=== PATIENT | male | born 1960 | race Caucasian/White ===

== ENCOUNTER 2017-08-02 02:42 | Emergency (ER) | payer BC ==
[~2017-08-02] VITALS: Ht 185.4 cm; Wt 105.0 kg
[2017-08-02 02:50] VITALS: BP 118/62; PULSE 60; RESP 18; TEMP 97.2; O2SAT 98
[2017-08-02] MEDS ORDERED: FAMOTIDINE 20 MG/2 ML VIAL IV STA (03:08)
[2017-08-02] MEDS ORDERED: SODIUM CHLOR 0.9% 1000 ML INJ 1,000 ML IV ONE (03:15)
[2017-08-02] MEDS ORDERED: ONDANSETRON HCL 4 MG/2 ML VIAL IV PUSH ONE (03:15)
[2017-08-02] MEDS ORDERED: LIPI40TA PO (03:16)
[2017-08-02] MEDS ORDERED: ASPI-516 CHEW (03:16)
[2017-08-02] MEDS ORDERED: LISI-515 PO (03:16)
--- NOTE | 2017-08-02 03:35 | PD ---
HPI Chief Complaint: Syncope/Near-Syncope Time Seen by Provider: 03:02 Travel History International Travel<30 days: No Contact w/Intl Traveler<30days: No Traveled to known affect area: No History of Present Illness HPI Patient is a 57-year-old male on vacation from [place]. He went out to a [employer] restaurant had not shows went to sleep woke up at 3 AM severe diarrhea cramps diaphoretic went to the toilet felt on the toilet had multiple episodes of diarrhea and the next thing he knew he was lying on the cold floor of the bathroom. He remembers thinking " the cold floor feels good" as he laid there for a little while . then got himself up back onto the toilet and saw himself in the mirror with a large knot swollen area to his right upper eyebrow area. Pt denies tonic-clonic activity denies chest pain denies shortness of breath patient did have slight amnesia of the moment from the toilet to the floor he doesn't remember falling. His was in the other room she did not hear the impact .. he called to her she came and found him sitting on the toilet ...patient in the ER is awake alert a good historian only sign of trauma is to his head denies any other injury to his body. He reports being very healthy no cardiac problems he plays basketball full-court back [place].. he runs up and down the full court for 30 minutes without ever having chest pain or shortness of breath. This fall from toilet happened just prior to arrival he has not seen another doctor for this he is not taking any medication for this PFSH Past Medical History High Cholesterol: Yes Hypertension: Yes Social History Alcohol Use: Yes Tobacco Use: No Substance Use: No Allergies-Medications (Allergen,Severity, Reaction): Coded Allergies: No Known Allergies (Unverified , 08/02/17) Reported Meds & Prescriptions Reported Meds & Active Scripts Active Pepcid (Famotidine) 20 Mg Tab 20 Mg PO BID Zofran Odt (Ondansetron Odt) 4 Mg Tab 4 Mg SL Q6HR PRN Reported Aspirin 81 Mg Chew 81 Mg CHEW DAILY Lipitor (Atorvastatin Calcium) 40 Mg Tab Unknown Dose PO HS Lisinopril 20 Mg Tab Unknown Dose PO DAILY Review of Systems Except as stated in HPI: all other systems reviewed are Neg HENT: Positive: Headaches (head trauma ) Neurologic: Positive: Dizziness, Syncope Physical Exam Narrative GENERAL: Patient is awake alert forehead has a 3 sediment around not to the upper outer eyebrow right-sided SKIN: Warm and dry. HEAD: + traumatic. 3 cm swelling above his right eyebrow. EYES: Pupils equal and round. No scleral icterus. No injection or drainage. ENT: No nasal bleeding or discharge. Mucous membranes pink and moist. NECK: Trachea midline. No JVD. CARDIOVASCULAR: Regular rate and rhythm. RESPIRATORY: No accessory muscle use. Clear to auscultation. Breath sounds equal bilaterally. GASTROINTESTINAL: Abdomen soft, non-tender, nondistended. Hepatic and splenic margins not palpable. MUSCULOSKELETAL: Extremities palpation of all his long bones bilateral did not elicit any pain. No obvious deformities. NEUROLOGICAL: Awake and alert. No obvious cranial nerve deficits. Motor grossly within normal limits. Five out of 5 muscle strength in the arms and legs. Normal speech. PSYCHIATRIC: Appropriate mood and affect; insight and judgment normal. Data Data Last Documented VS Vital Signs Date Time Temp Pulse Resp B/P (MAP) Pulse Ox O2 Delivery O2 Flow Rate FiO2 08/02/17 06:41 08/02/17 04:57 64 18 96 Room Air 08/02/17 02:50 97.2 Orders Orders Electrocardiogram (08/02/17 03:08) Complete Blood Count With Diff (08/02/17 03:08) Comprehensive Metabolic Panel (08/02/17 03:08) Ckmb (Isoenzyme) Profile (08/02/17 03:08) Troponin I (08/02/17 03:08) Lipase (08/02/17 03:08) Ct Brain W/O Iv Contrast(Rout) (08/02/17 03:08) Ct Facial Bones W/O Iv Cont (08/02/17 ) Ct Cerv Spine W/O Contrast (08/02/17 ) Ondansetron Inj (Zofran Inj) (08/02/17 03:15) Famotidine Inj (Pepcid Inj) (08/02/17 03:08) Sodium Chlor 0.9% 1000 Ml Inj (Ns 1000 M (08/02/17 03:15) CKMB (08/02/17 03:18) CKMB% (08/02/17 03:18) Urinalysis - C+S If Indicated (08/02/17 05:13) Ed Discharge Order (08/02/17 06:40) Labs Laboratory Tests Test 08/02/17 03:18 08/02/17 05:18 White Blood Count 15.4 TH/MM3 Red Blood Count 5.02 MIL/MM3 Hemoglobin 15.5 GM/DL Hematocrit 43.8 % Mean Corpuscular Volume 87.2 FL Mean Corpuscular Hemoglobin 30.8 PG Mean Corpuscular Hemoglobin Concent 35.3 % Red Cell Distribution Width 12.5 % Platelet Count 202 TH/MM3 Mean Platelet Volume 7.8 FL Neutrophils (%) (Auto) 85.8 % Lymphocytes (%) (Auto) 5.3 % Monocytes (%) (Auto) 8.5 % Eosinophils (%) (Auto) 0.2 % Basophils (%) (Auto) 0.2 % Neutrophils # (Auto) 13.2 TH/MM3 Lymphocytes # (Auto) 0.8 TH/MM3 Monocytes # (Auto) 1.3 TH/MM3 Eosinophils # (Auto) 0.0 TH/MM3 Basophils # (Auto) 0.0 TH/MM3 CBC Comment DIFF FINAL Differential Comment Blood Urea Nitrogen 16 MG/DL Creatinine 1.36 MG/DL Random Glucose 268 MG/DL Total Protein 7.3 GM/DL Albumin 4.0 GM/DL Calcium Level 8.5 MG/DL Alkaline Phosphatase 100 U/L Aspartate Amino Transf (AST/SGOT) 25 U/L Alanine Aminotransferase (ALT/SGPT) 42 U/L Total Bilirubin 0.6 MG/DL Sodium Level 138 MEQ/L Potassium Level 3.6 MEQ/L Chloride Level 103 MEQ/L Carbon Dioxide Level 24.0 MEQ/L Anion Gap 11 MEQ/L Estimat Glomerular Filtration Rate 54 ML/MIN Total Creatine Kinase 190 U/L Creatine Kinase MB 3.1 NG/ML Troponin I LESS THAN 0.02 NG/ML Lipase 100 U/L Urine Color YELLOW Urine Turbidity CLEAR Urine pH 5.5 Urine Specific [place] 1.020 Urine Protein NEG mg/dL Urine Glucose (UA) 1000 mg/dL Urine Ketones NEG mg/dL Urine Occult Blood NEG Urine Nitrite NEG Urine Bilirubin NEG Urine Urobilinogen LESS THAN 2.0 MG/DL Urine Leukocyte Esterase NEG Urine RBC LESS THAN 1 /hpf Urine WBC 1 /hpf Urine Mucus FEW /lpf Microscopic Urinalysis Comment CULT NOT INDICATED MDM Medical Decision Making Medical Screen Exam Complete: Yes Emergency Medical Condition: Yes Differential Diagnosis vasovagal syncope , vs micturitional syncope vs cardiac event syncope , TIA global syncope other , Narrative Course vasovagal syncope most likely sitting on toilet possible strianing to move bowels or pain stimulation syncope or excessive fluid volume loss from diarrrhea then postural standing orthosttic syncope , then head trauma , no CP no SOB no post ictal period, . Pt has labs trop neg , and head CT negative, fluid replaced NS liter and orthostatics are annette , pt is very much in good cardiophyscial conditon and cardiac cause very unlikely . d/c follow up PCP at home Diagnosis Primary Impression: Vaso vagal episode Additional Impression: Syncope and collapse Patient Instructions: General Instructions, Syncope (ED) Scripts Famotidine (Pepcid) 20 Mg Tab 20 MG PO BID, #20 TAB 0 Refills Prov: Rajan Jacobsen MD 08/02/17 Ondansetron Odt (Zofran Odt) 4 Mg Tab 4 MG SL Q6HR Y for Nausea/Vomiting, #20 TAB 0 Refills Prov: Rajan Jacobsen MD 08/02/17 Disposition: 01 DISCHARGE HOME Condition: Good Rajan Jacobsen MD Aug 02, 2017 03:35
[2017-08-02 03:50] LABS: AUTOMATED NEUTROPHIL # 13.2 TH/MM3 (1.8-7.7); BASOPHIL % 0.2 % (0.0-2.0); EOSINOPHIL % 0.2 % (0.0-4.0); HEMATOCRIT 43.8 % (39.0-51.0); HEMOGLOBIN 15.5 GM/DL (13.0-17.0); LYMPH % 5.3 % (9.0-44.0); LYMPHOCYTE # 0.8 TH/MM3 (1.0-4.8); MEAN CELL VOLUME 87.2 FL (80.0-100.0); MEAN CORPUSCULAR HEMOGLOBIN 30.8 PG (27.0-34.0); MEAN CORPUSCULAR HGB CONC 35.3 % (32.0-36.0); MEAN PLATELET VOLUME 7.8 FL (7.0-11.0); MONO % 8.5 % (0.0-8.0); MONOCYTE # 1.3 TH/MM3 (0-0.9); NEUT % 85.8 % (16.0-70.0); PLATELET COUNT 202 TH/MM3 (150-450); RED BLOOD COUNT 5.02 MIL/MM3 (4.50-5.90); RED CELL DISTRIBUTION WIDTH 12.5 % (11.6-17.2); WHITE BLOOD COUNT 15.4 TH/MM3 (4.0-11.0)
[2017-08-02 03:53] LABS: ALT (GPT) 42 U/L (12-78); AST (GOT) 25 U/L (15-37); BLOOD UREA NITROGEN 16 MG/DL (7-18); CALCIUM 8.5 MG/DL (8.5-10.1); CHLORIDE 103 MEQ/L (98-107); CREATININE 1.36 MG/DL (0.60-1.30); GLOMERULAR FILTRATION RATE 54 ML/MIN (>89); GLUCOSE,RANDOM 268 MG/DL (74-106); SODIUM (NA) 138 MEQ/L (136-145)
[2017-08-02 04:00] LABS: ALKALINE PHOSPHATASE 100 U/L (45-117); TOTAL BILIRUBIN ADULT 0.6 MG/DL (0.2-1.0); TOTAL PROTEIN 7.3 GM/DL (6.4-8.2); TROPONIN I LESS THAN 0.02 NG/ML (0.02-0.05)
--- NOTE | 2017-08-02 04:43 | RADRPT ---
EXAM DATE/TIME: 08/02/2017 04:06 [facility] COMPARISON: No previous studies available for comparison. INDICATIONS : Trauma, fall. Hit right side of head. RADIATION DOSE: 66.34 CTDIvol (mGy) MEDICAL HISTORY : Hypertension. SURGICAL HISTORY : None. ENCOUNTER: Initial ACUITY: 1 day PAIN SCALE: 7/10 LOCATION: cranial TECHNIQUE: Multiple contiguous axial images were obtained of the head. Using automated exposure control and adj ustment of the mA and/or kV according to patient size, radiation dose was kept as low as reasonably a chievable to obtain optimal diagnostic quality images. DICOM format image data is available electro nically for review and comparison. FINDINGS: CEREBRUM: The ventricles are normal for age. No evidence of midline shift, mass lesion, hemorrhage or acute in farction. No extra-axial fluid collections are seen. POSTERIOR FOSSA: The cerebellum and brainstem are intact. The 4th ventricle is midline. The cerebellopontine angle i s unremarkable. EXTRACRANIAL: The visualized portion of the orbits is intact. SKULL: The calvaria is intact. No evidence of skull fracture. CONCLUSION: No acute intracranial disease. Lyndon Mclean MD on August 02, 2017 at 4:41 Board Certified Radiologist. This report was verified electronically.
--- NOTE | 2017-08-02 04:45 | RADRPT ---
EXAM DATE/TIME: 08/02/2017 04:06 [facility] COMPARISON: No previous studies available for comparison. INDICATIONS : Trauma, fall. Hit right side of head. RADIATION DOSE: 19.10 CTDIvol (mGy) MEDICAL HISTORY : Hypertension. SURGICAL HISTORY : None. ENCOUNTER: Initial ACUITY: 1 day PAIN SCORE: 6/10 LOCATION: Right facial TECHNIQUE: Volumetric scanning of the facial bones was performed. Using automated exposure control and adjustme nt of the mA and/or kV according to patient size, radiation dose was kept as low as reasonably achiev able to obtain optimal diagnostic quality images. DICOM format image data is available electronicall y for review and comparison. FINDINGS: ORBITS: The orbital and infraorbital osseous structures are intact. The retroconal structures have a normal configuration. No radiopaque foreign bodies are seen. NASAL BONE: The nasal bone and maxillary spine are intact ZYGOMATIC ARCHES: Symmetric without evidence of fracture. SINUSES: The maxillary, ethmoid and frontal sinuses are intact. No air-fluid levels seen. NASAL CAVITY: The nasal septum is intact and midline. The lacrimal ducts are intact. SOFT TISSUES: No radiopaque foreign bodies seen. Right-sided soft-tissue swelling is seen. INTRACRANIAL: No intracranial air seen. CRIBIFORM PLATE: Grossly intact. CONCLUSION: No facial fracture. Right-sided facial soft tissue swelling. Lyndon Mclean MD on August 02, 2017 at 4:42 Board Certified Radiologist. This report was verified electronically.
--- NOTE | 2017-08-02 04:46 | RADRPT ---
EXAM DATE/TIME: 08/02/2017 04:06 [facility] COMPARISON: No previous studies available for comparison. INDICATIONS : Trauma, fall. Hit right side of head. RADIATION DOSE: 21.96 CTDIvol (mGy) MEDICAL HISTORY : Hypertension. SURGICAL HISTORY : None. ENCOUNTER: Initial ACUITY: 1 day PAIN SCALE: 0/10 LOCATION: neck TECHNIQUE: Volumetric scanning of the cervical spine was performed. Multiplanar reconstructions in the sagittal, coronal and oblique axial planes were performed. Using automated exposure control and adjustment o f the mA and/or kV according to patient size, radiation dose was kept as low as reasonably achievable to obtain optimal diagnostic quality images. DICOM format image data is available electronically f or review and comparison. FINDINGS: VERTEBRAE: Normal vertebral body height. Degenerative changes predominantly at C5-6. ALIGNMENT: No evidence of subluxation. C2-C3: The bony spinal canal is normal in size. No evidence of disc bulge or herniation. The neural forami na are bilaterally patent. C3-C4: The bony spinal canal is normal in size. No evidence of disc bulge or herniation. The neural forami na are bilaterally patent. C4-C5: The bony spinal canal is normal in size. No evidence of disc bulge or herniation. The neural forami na are bilaterally patent. C5-C6: The bony spinal canal is normal in size. No evidence of disc bulge or herniation. The neural forami na are bilaterally patent. C6-C7: The bony spinal canal is normal in size. No evidence of disc bulge or herniation. The neural forami na are bilaterally patent. C7-T1: The bony spinal canal is normal in size. No evidence of disc bulge or herniation. The neural forami na are bilaterally patent. CONCLUSION: No fracture or subluxation. Lyndon Mclean MD on August 02, 2017 at 4:44 Board Certified Radiologist. This report was verified electronically.
[2017-08-02 04:57] VITALS: BP 130/78; PULSE 64; RESP 18; O2SAT 96
[2017-08-02 05:49] LABS: BILIRUBIN, URINE NEG (NEG); BLOOD, URINE NEG (NEG); GLUCOSE,URINE 1000 mg/dL (NEG); KETONE, URINE NEG (NEG); MUCUS URINE FEW /lpf (OCC); NITRITE,URINE NEG (NEG); PH, URINE 5.5 (5.0-8.5); URINE COLOR YELLOW (YELLW/STRAW); URINE LEUKOCYTE ESTERASE NEG (NEG)
[2017-08-02] MEDS ORDERED: FAMO1TAB37 PO (06:37)
[2017-08-02] MEDS ORDERED: ZOFR4TAB3 SL (06:37)
--- NOTE | 2017-08-02 12:12 | EKG ---
Date Performed: 08/02/2017 Time Performed: 03:10:44 PTAGE: 57 years EKG: Sinus rhythm INCOMPLETE RIGHT BUNDLE BRANCH BLOCK NONSPECIFIC T-WAVE ABNORMALITY ABNORMAL ECG NO PREVIOUS TRACING DOCTOR: Porter Estrada Interpretating Date/Time 08/02/2017 12:11:47
== END 2017-08-02 06:53 | disposition home or self-care (01) ==
LOC: NEPE 02:42
DX: R55 Syncope and collapse (principal); R51 Headache; R42 Dizziness and giddiness; R22.0 Localized swelling, mass and lump, head; I45.10 Unspecified right bundle-branch block; R94.31 Abnormal electrocardiogram [ECG] [EKG]; E78.00 Pure hypercholesterolemia, unspecified; I10 Essential (primary) hypertension; Z79.82 Long term (current) use of aspirin
CPT/HCPCS: 70450; 70486; 72125; 80053; 81001; 82550; 82552; 83690; 84484; 85025; 93005; 96361; 96374; 96375; 99285; J2405; J7030